=== PATIENT | female | born 1970 | race Two or more races ===

== ENCOUNTER 2016-10-10 13:45 | Emergency (ER) | payer SELFPAY ==
[~2016-10-10] VITALS: Ht 160 cm; Wt 65.8 kg
[2016-10-10 14:24] LABS: Basophils # (auto) 0.1 uL; Basophils % (auto) 0.7 % (0.0-2.0); CONDITION Y; Eosinophils # (auto) 0.3 uL; Eosinophils % (auto) 3.4 % (0.0-7.0); Hematocrit 36.6 % (36.0-46.0); Hemoglobin 12.1 g/dL (12.2-16.2); Lymphocytes # (auto) 1.6 uL; Lymphocytes % (auto) 21.2 % (10.0-50.0); Mean Corpuscular Hemoglobin 28.2 pg (28.0-32.0); Mean Corpuscular Hgb Conc. 33.2 g/dL (32.0-36.0); Mean Platelet Volume 9.3 fL (7.4-10.4); Monocytes # (auto) 0.5 uL; Monocytes % (auto) 6.5 % (0.0-12.0); Neutrophils # (auto) 5.2 uL; Neutrophils % (auto) 68.2 % (37.0-80.0); Platelet Count (auto) 356 10^3/uL (140-450); Red Cell Distribution Width 16.9 % (11.6-16.0); White Blood Cell 7.6 10^3/uL (4.4-10.8)
[2016-10-10 14:45] LABS: Albumin 3.4 g/dL (3.4-5.0); Alkaline Phosphatase 71 U/L (45-117); Anion Gap 5 (5-15); Aspartate Aminotransferase 16 U/L (15-37); BUN/Creatinine Ratio 29.5; Bilirubin, Total 0.3 mg/dL (0.2-1.0); Blood Urea Nitrogen 18 mg/dL (7-18); Calcium 8.6 mg/dL (8.5-10.1); Carbon Dioxide 27 mmol/L (21-32); Chloride 107 mmol/L (98-107); GFR African American 136 mL/min; GFR Non-African American 113 mL/min; Glucose 98 mg/dL (74-106); Potassium 4.3 mmol/L (3.5-5.1); Sodium 139 mmol/L (136-145); Total Protein 7.3 g/dL (6.4-8.2)
[2016-10-10 15:09] VITALS: BP 114/48
== END 2016-10-10 16:30 | disposition home or self-care (01) ==
LOC: ER 13:47
DX: R42 Dizziness and giddiness (principal); F41.1 Generalized anxiety disorder
CPT/HCPCS: 36415; 70450; 80053; 82962; 84484; 85025; 93005

== ENCOUNTER 2019-01-28 16:30 | Emergency (ER) | payer SELFPAY ==
[~2019-01-28] VITALS: Ht 152.4 cm; Wt 74.4 kg
[2019-01-28 17:14] VITALS: BP 127/57
[2019-01-28] MEDS ORDERED: IPRATROPIUM BROM 0.5 MG/2.5ML INH SOL NEB ONE (17:15)
[2019-01-28] MEDS ORDERED: ALBUTEROL SULF 2.5 MG/0.5ML(0.5%) NEB SOLN NEB ONE (17:15)
== END 2019-01-28 17:58 | disposition home or self-care (01) ==
LOC: ER 16:33
DX: F41.1 Generalized anxiety disorder (principal); J98.01 Acute bronchospasm
CPT/HCPCS: 93005; 94640; 99283; J7611; J7644

== ENCOUNTER 2020-07-28 23:24 | Emergency (ER) | payer SELFPAY ==
[~2020-07-28] VITALS: Ht 157.5 cm; Wt 65.8 kg
[2020-07-28 23:30] VITALS: BP 134/77
== END 2020-07-28 23:49 | disposition left against medical advice (07) ==
LOC: ER 23:24
DX: S60.466A Insect bite (nonvenomous) of right little finger, initial encounter (principal); Z53.21 Procedure and treatment not carried out due to patient leaving prior to being seen by health care provider; W57.XXXA Bitten or stung by nonvenomous insect and other nonvenomous arthropods, initial encounter; Y93.89 Activity, other specified; Y92.89 Other specified places as the place of occurrence of the external cause; Y99.8 Other external cause status

== ENCOUNTER 2020-07-29 00:07 | Emergency (ER) | payer SELFPAY ==
[~2020-07-29] VITALS: Ht 167.6 cm; Wt 68.0 kg
[2020-07-29] MEDS ORDERED: ONDANSETRON HCL 4 MG/2 ML VIAL IV ONE ×3 (00:15→12:00)
[2020-07-29] MEDS ORDERED: fentaNYL CITRATE 100 MCG/2 ML VL IV ONE (00:15)
[2020-07-29] MEDS ORDERED: PIPERACILLIN-TAZOB 3.375GM 100 ML IV ONE (00:15)
[2020-07-29] MEDS ORDERED: LORazepam 2MG/ML-1ML VIAL IV ONE ×2 (02:00→17:00)
[2020-07-29] MEDS ORDERED: KETOROLAC TROMETH 30 MG/ML 1ML VIAL IV ONE (02:30)
[2020-07-29] MEDS ORDERED: HYDROmorphone HCL 2 MG/ML VL IV ONE ×2 (04:15→09:00)
[2020-07-29] MEDS ORDERED: TETANUS-DIPTH-ACEL PERTUSSIS 0.5ML SYR Tdap IM ONE (04:15)
[2020-07-29] MEDS ORDERED: ANTIVENIN LATRODECTUS MACTANS KIT IV ONE (06:30)
[2020-07-29] MEDS ORDERED: diazePAM 5 MG TAB PO ONE (06:30)
[2020-07-29] MEDS ORDERED: CALCIUM CHL 100MG/ML 1,000 MG in D5W 5% 100 ML IV ONE ×2 (06:30→17:00)
[2020-07-29] MEDS ORDERED: SODIUM CHLORIDE 0.9% 1,000 ML IV ONE (07:30)
[2020-07-29] MEDS ORDERED: SODIUM CHLORIDE 0.9% 500 ML IVB ONE (07:30)
[2020-07-29 08:26] LABS: Basophils # (auto) 0.1 10 ^3/uL (0-0.2); Eosinophils # (auto) 0 10 ^3/uL (0-0.8); Mean Corpuscular Hemoglobin 20.8 pg (28.0-32.0)
[2020-07-29 08:28] LABS: Basophils % (auto) 0.4 % (0.0-2.0); Hematocrit 32.2 % (36.0-46.0); Hemoglobin 10.2 g/dL (12.2-16.2); Lymphocytes # (auto) 1.6 10 ^3/uL (0.4-5.4); Lymphocytes % (auto) 11.6 % (10.0-50.0); Mean Corpuscular Hgb Conc. 31.7 g/dL (32.0-36.0); Mean Corpuscular Volume 65.6 fL (80.0-100.0); Monocytes # (auto) 0.8 10 ^3/uL (0-1.3); Monocytes % (auto) 5.8 % (0.0-12.0); Neutrophils % (auto) 82.2 % (37.0-80.0); Platelet Count (auto) 401 10^3/uL (140-450); Red Blood Cells 4.91 10^6/uL (4.0-5.20); White Blood Cell 13.4 10^3/uL (4.4-10.8)
[2020-07-29 08:29] LABS: Red Cell Distribution Width 23.3 % (11.8-14.3)
[2020-07-29 08:43] LABS: Albumin 3.6 g/dL (3.4-5.0); Calcium 9.6 mg/dL (8.5-10.1); Magnesium 2.2 mg/dL (1.6-2.6); Potassium 4.1 mmol/L (3.5-5.1)
[2020-07-29 08:46] LABS: BUN/Creatinine Ratio 27.7; Bilirubin, Total 0.3 mg/dL (0.2-1.0); Total Protein 8.2 g/dL (6.4-8.2)
[2020-07-29 10:23] LABS: Urine Bacteria FEW /hpf (None Seen); Urine Blood Negative /uL (Negative); Urine Specific Gravity 1.018 (1.001-1.035); Urine WBC <1 /hpf (0 - 5)
[2020-07-29] MEDS ORDERED: MORPHINE SULF INJ 2 MG/ML SYRINGE 1ML IV ONE (12:00)
[2020-07-29 21:00] VITALS: BP 155/71
== END 2020-07-29 21:32 | disposition home or self-care (01) ==
LOC: EDBD 00:07 → ER 00:07
DX: S60.561A Insect bite (nonvenomous) of right hand, initial encounter (principal); F41.9 Anxiety disorder, unspecified; W57.XXXA Bitten or stung by nonvenomous insect and other nonvenomous arthropods, initial encounter; Y93.89 Activity, other specified; Y92.89 Other specified places as the place of occurrence of the external cause; Y99.8 Other external cause status
CPT/HCPCS: 36415; 80053; 81001; 83690; 83735; 85025; 90471; 90715; 96361; 96365; 96366; 96367; 96375; 96376; 99285; J1170; J1885; J2060; J2270; J2405; J2543; J3010; J7060